=== PATIENT | female | born 1950 | race Hispanic/Latino ===

== ENCOUNTER 2017-08-16 11:27 | Outpatient (CLI) | payer MEDICARE, OTHER | END 2017-08-16 11:28 | disposition home or self-care (01) | LOC: BICMAMMO 11:27 | PROVIDERS: ATTEND Nurse Practitioner Family | DX: Z12.31 Encounter for screening mammogram for malignant neoplasm of breast (principal) | CPT/HCPCS: 77067; G0202 ==

== ENCOUNTER 2018-05-19 08:06 | Outpatient (CLI) | payer MEDICARE, OTHER | END 2018-05-19 08:07 | disposition home or self-care (01) | LOC: BICMRI 08:06 | PROVIDERS: ATTEND Orthopaedic Surgery | DX: M25.511 Pain in right shoulder (principal); M75.101 Unspecified rotator cuff tear or rupture of right shoulder, not specified as traumatic; S43.401A Unspecified sprain of right shoulder joint, initial encounter; M19.011 Primary osteoarthritis, right shoulder ==

== ENCOUNTER 2018-05-23 14:52 | Outpatient (CLI) | payer MEDICARE, OTHER ==
[2018-05-23 16:16] LABS: #Basophils 0.1 thou/uL (0.0-0.2); #Eosinphils 0.1 thou/uL (0.0-0.7); #Lymphocytes 2.3 thou/uL (1.20-3.40); #Monocytes 0.5 thou/uL (0.11-0.59); #Neutrophils 2.7 thou/uL (1.40-6.50); %Basophils 1.1 % (0.0-1.0); %Eosinophils 1.2 % (0.0-10.0); %Lymphocytes 41.5 % (21.0-51.0); %Neutrophils 47.2 % (42.0-75.0); Hemoglobin 12.9 g/dL (12.0-16.0); Mean Corpuscular HGB CONC 33.3 g/dL (32.0-36.0); Mean Corpuscular Volume 96.1 fL (78.0-98.0); Mean Platelet Volume 8.7 fL (7.4-10.4); Platelet Count 230 thou/uL (130-400); RBC Distribution Width 12.3 % (11.5-14.5); Red Blood Cell (RBC) Count 4.04 mill/uL (4.20-5.40); White Blood Cell (WBC) Count 5.6 thou/uL (4.8-10.8)
[2018-05-23 16:36] LABS: Anion Gap 11 mmol/L (10-20); BUN (Urea Nitrogen) 13 mg/dL (9.8-20.1); Calc. Creatinine Clearance 0 mL/min (70-130); Calcium 9.6 mg/dL (7.8-10.44); Carbon Dioxide 27 mmol/L (23-31); Chloride 107 mmol/L (98-107); Estimated GFR-MDRD 56; Glucose 102 mg/dL (80-115); Potassium 3.9 mmol/L (3.5-5.1); Sodium 141 mmol/L (136-145)
--- NOTE | 2018-05-24 17:44 | EKG ---
Test Reason : Blood Pressure : / mmHG Vent. Rate : 063 BPM Atrial Rate : 063 BPM P-R Int : 178 ms QRS Dur : 084 ms QT Int : 426 ms P-R-T Axes : 049 039 007 degrees QTc Int : 435 ms Normal sinus rhythm Low voltage QRS Cannot rule out Anterior infarct (cited on or before 05-JAN-2012) Abnormal ECG When compared with ECG of 05-JAN-2012 13:18, No significant change was found Confirmed by DR. Ger ELLIOTT ([id number]) on 05/24/2018 5:43:37 PM Referred By: XANDER Confirmed By:DR. Ger ELLIOTT
== END 2018-05-23 14:53 | disposition home or self-care (01) ==
LOC: LABBT 14:52
PROVIDERS: ATTEND Orthopaedic Surgery
DX: Z01.818 Encounter for other preprocedural examination (principal); M75.101 Unspecified rotator cuff tear or rupture of right shoulder, not specified as traumatic; S46.211A Strain of muscle, fascia and tendon of other parts of biceps, right arm, initial encounter
CPT/HCPCS: 80048; 85025; 93005; 93010

== ENCOUNTER 2018-06-02 05:44 | Day surgery (SDC) | payer MEDICARE, OTHER ==
[2018-05-23 15:10] VITALS: BMI 37.8
[2018-06-02] MEDS ORDERED: Fentanyl 100 MCG/2 ML VIAL ONE (06:35)
[2018-06-02] MEDS ORDERED: Midazolam HCl 2 mg/2 ml Vial ONE (06:35)
[2018-06-02] MEDS ORDERED: CEFAZOLIN/Water 2 GM/20 ML SYRINGE ONE (06:40)
[2018-06-02] MEDS ORDERED: Promethazine HCl 25 MG/ML VIAL IM PRN (07:20)
[2018-06-02] MEDS ORDERED: Ondansetron HCl/PF 4 MG/2 ML Vial IVP PRN (07:20)
[2018-06-02] MEDS ORDERED: traMADol HCl 50 MG TAB PO PRN ×2 (07:20)
[2018-06-02] MEDS ORDERED: Ropivacaine 0.2% 550 ML 550 ML NERVE BLCK SCH (07:20)
[2018-06-02] MEDS ORDERED: Zolpidem Tartrate 5 MG TAB PO PRN (07:20)
[2018-06-02] MEDS ORDERED: Ketorolac Tromethamine 30 MG/ML VIAL IVP PRN (07:20)
[2018-06-02] MEDS ORDERED: Fentanyl 100 MCG/2 ML VIAL SLOW IVP PRN (07:25)
[2018-06-02] MEDS ORDERED: SUGAMMADEX SODIUM 500 MG/5 ML VIAL ONE (08:51)
--- NOTE | 2018-06-02 11:38 | OP ---
DATE OF PROCEDURE: 06/02/2018 PREOPERATIVE DIAGNOSIS: Acute on chronic right supraspinatus rotator cuff tear with retraction. POSTOPERATIVE DIAGNOSIS: Acute on chronic right supraspinatus rotator cuff tear with retraction. PROCEDURE: Open right shoulder acromioplasty with primary double row rotator cuff repair. SURGEON: Marques Rodriguez M.D. FURNACE DOOR TENDER: Gulshan Lozoya PA-C. ANESTHESIA: General via laryngeal mask airway augmented with infraclavicular or interscalene block o n the right. DRAINS: None. SPECIMENS: None. COMPLICATIONS: None. COUNTS: Correct. IMPLANTS: Two 5.5 metallic double stranded Arthrex anchors supplemented with 2 SwiveLock double stra nded anchors. INDICATIONS FOR SURGERY: Keshia is a 68-year-old female that fell approximately 2-3 months ago with significant intense pain in the right shoulder. MRI was obtained which demonstrated a right rotator cuff tear with retraction. The patient has elected to proceed with open primary repair as d efinitive treatment of her pain and weakness. PROCEDURE IN DETAIL: After informed consent was obtained in the preoperative holding area, the patie nt received preoperative antibiotics and interscalene block was placed on the right. We then taken t o the operative suite where LMA was placed and secured. Once adequate anesthesia was obtained, jessa nt was positioned appropriate and the right upper extremity was prepped and draped in usual sterile f ashion. Prior to incision, timeout was called and all members of surgical team agreed upon site, radu geon, and patient. After this was completed, incision was made in a mini open style extending over t he acromioclavicular joint down past the acromion and approximately 3 fingers past the acromial edge inferiorly. Subcutaneous layer was dissected with Bovie electrocautery. The raphe between the anter omedial head of the deltoid was identified and divided with cautery. The acromion was then exposed w ith Bovie electrocautery. It was rongeured off with the large Leksell rongeur. Adequate visualizati on was obtained. Synovectomy was performed. The cuff was then identified. It was not retracted, bu t a significant hole was noted with a tear at the tuberosity and insertion of the supraspinatus tendo n. Two 5.5 anchors were then placed. They were stitched in a Peter-Ken style stitch with oversewn towards the posterior rent. We then also placed a bridging stitch in the posterior aspect of the te ar which provided with a nice margin convergence of the retracted tear. All stitches were tied over the top after rongeur of the bony footprint was performed. We then placed two Arthrex anchors distal to the footprint for double row technique. At the completion of all anchor placement, we had watert ight fit of the rotator cuff at the insertion that was inspected with internal and external rotation. Full range of motion was noted before, during, and after the surgery. The entire wound was copious ly irrigated with normal saline. Primary closure was accomplished with #1 Ethibond through the acrom ion and deltoid. This was oversewn with #1 Vicryl, 2-0 Vicryl, and the plane subcutaneous layer and stainless steel yousif were used to reapproximate the skin. The procedure was terminated without an y complications. The patient was awakened. LMA was removed in the operative suite and she was taken to recovery room in stable condition.
[2018-06-02] MEDS ORDERED: Ropivacaine 0.2% HCl/PF (40 MG/20 ML VIAL) ONE (13:02)
[2018-06-02] MEDS ORDERED: Ropivacaine 0.5% HCl/PF (150 MG/30 ML VIAL) ONE (13:02)
[2018-06-02] MEDS ORDERED: Dexamethasone 20 MG/5 ML VIAL ONE (14:17)
[2018-06-02] MEDS ORDERED: Ondansetron HCl/PF 4 MG/2 ML Vial ONE (14:17)
[2018-06-02] MEDS ORDERED: Glycopyrrolate 0.2 MG/ML 5 ML SYRINGE ONE (14:17)
[2018-06-02] MEDS ORDERED: PROPOFOL 200 MG/20 ML VIAL ONE (14:17)
[2018-06-02] MEDS ORDERED: Lidocaine 1% PF 5 ML VIAL ONE (14:17)
[2018-06-02] MEDS ORDERED: ePHEDrine/0.9% NaCl/PF SYRINGE 50 mg/10 ml ONE (14:17)
== END 2018-06-02 11:40 | disposition home or self-care (01) ==
LOC: SDC 05:44
PROVIDERS: ATTEND Orthopaedic Surgery
PROC: 0LM10ZZ Reattachment of Right Shoulder Tendon, Open Approach (ICD-10-PCS; principal; 2018-06-02)
DX: S46.011A Strain of muscle(s) and tendon(s) of the rotator cuff of right shoulder, initial encounter (principal); S46.211A Strain of muscle, fascia and tendon of other parts of biceps, right arm, initial encounter; E78.5 Hyperlipidemia, unspecified; I10 Essential (primary) hypertension; K21.9 Gastro-esophageal reflux disease without esophagitis; Z79.82 Long term (current) use of aspirin; Z79.899 Other long term (current) drug therapy; Z88.5 Allergy status to narcotic agent; Z91.013 Allergy to seafood; Z96.661 Presence of right artificial ankle joint; Z98.890 Other specified postprocedural states; W19.XXXA Unspecified fall, initial encounter
CPT/HCPCS: 23420; 97139; A4306; C1713 ×2; G8984; G8985; G8986; J1100; J2001; J2250; J2405; J2704; J2795; J3010

== ENCOUNTER 2019-01-31 08:49 | Outpatient (CLI) | payer MEDICARE, OTHER ==
--- NOTE | 2019-01-31 09:19 | MMO ---
Bilateral MAMMO Bilat Screen [facility]. CLINICAL HISTORY: Patient is 68 years old and is seen for screening. The patient has no family history of breast cancer. The patient has no personal history of cancer. VIEWS: The views performed were: bilateral craniocaudal with tomosynthesis and bilateral mediolateral oblique with tomosynthesis. FILMS COMPARED: The present examination has been compared to prior imaging studies performed at [facility] on 07/17/1997, at [facility] on 10/05/2005 and 08/16/2017, and at [facility] on 07/19/2013. MAMMOGRAM FINDINGS: The breasts are almost entirely fat. There are stable benign appearing calcifications seen in both breasts. There are no suspicious masses, suspicious calcifications, or new areas of architectural distortion. IMPRESSION: THERE IS NO MAMMOGRAPHIC EVIDENCE OF MALIGNANCY. A ROUTINE FOLLOW-UP MAMMOGRAM IN 1 YEAR IS RECOMMENDED. THE RESULTS OF THIS EXAM WERE SENT TO THE PATIENT. ACR BI-RADS Category 2 - Benign finding MAMMOGRAPHY NOTE: 1. A negative mammogram report should not delay a biopsy if a dominant of clinically suspicious mass is present. 2. Approximately 10% to 15% of breast cancers are not detected by mammography. 3. Adenosis and dense breasts may obscure an underlying neoplasm.
== END 2019-01-31 08:50 | disposition home or self-care (01) ==
LOC: BICMAMMO 08:49
PROVIDERS: ATTEND Nurse Practitioner Family
DX: Z12.31 Encounter for screening mammogram for malignant neoplasm of breast (principal)
CPT/HCPCS: 77063; 77067

== ENCOUNTER 2022-04-17 09:52 | Outpatient (CLI) | payer MEDICARE, OTHER | END 2022-04-17 09:53 | disposition home or self-care (01) | LOC: BICMAMMO 09:52 | PROVIDERS: ATTEND Family Medicine | DX: Z12.31 Encounter for screening mammogram for malignant neoplasm of breast (principal) | CPT/HCPCS: 77063; 77067 ==